=== PATIENT | female | born 1955 | race African-American/Black ===

== ENCOUNTER 2018-01-05 17:21 | Emergency (ER) | payer MEDICAID ==
[~2018-01-05] VITALS: Ht 167.6 cm; Wt 105.0 kg
[~2018-01-05 17:21] MED LIST: METF500T
[2018-01-05 18:08] VITALS: BP 153/70
== END 2018-01-05 20:00 | disposition left against medical advice (07) ==
LOC: ER 17:21
DX: Z53.21 Procedure and treatment not carried out due to patient leaving prior to being seen by health care provider (principal)